=== PATIENT | female | born 1960 | race Caucasian/White ===

== ENCOUNTER → 2017-08-16 | Outpatient (CLI) | payer OTHER ==
--- NOTE | 2017-08-16 10:59 | XR ---
EXAMINATION TYPE: XR shoulder complete LT DATE OF EXAM: 08/16/2017 CLINICAL HISTORY: Strain injury 4 days ago with pain. TECHNIQUE: Three views of the left shoulder are obtained. COMPARISON: None. FINDINGS: There is no acute fracture/dislocation evident in the left shoulder. The acromioclavicula r joint show some narrowing. There is mild spurring inferiorly glenohumeral joint. There are subchond ral cystic change in the humeral head. Rounded densities are felt to reflect intra-articular loose kim dies. The visualized ribs are intact and unremarkable. IMPRESSION: No acute fracture or dislocation is noted. Other findings As noted above.
== END ==
LOC: RADXRYALE 10:35
PROVIDERS: ATTEND Internal Medicine
DX: M25.512 Pain in left shoulder (principal)

== ENCOUNTER → 2021-03-24 | Outpatient (CLI) | payer BC, OTHER | END | disposition home or self-care (01) | LOC: LABWHC1 16:15 | PROVIDERS: ATTEND Internal Medicine | DX: Z20.822 Contact with and (suspected) exposure to COVID-19 (principal) | CPT/HCPCS: U0003; C9803; U0005 ==